=== PATIENT | male | born 1955 | race Caucasian/White ===

== ENCOUNTER 2017-09-19 09:57 | Emergency (ER) | payer BC ==
[~2017-09-19] VITALS: Ht 172.7 cm; Wt 80.0 kg
[~2017-09-19 09:57] MED LIST: ALPR.25 PO; ASPI81TA82 PO; CO Q100C9 PO; LISI-357 PO; METO25TA6 PO; NEUR600T PO; OMEG100037; ROSU40 PO; ZYRT10TA12 PO
[2017-09-19 10:02] VITALS: BP 141/63; PULSE 67; RESP 15; TEMP 98.6; O2SAT 98
[2017-09-19] MEDS ORDERED: METO25TA3 PO (10:24)
[2017-09-19] MEDS ORDERED: ROSU20 PO (10:24)
[2017-09-19] MEDS ORDERED: GABA600T PO (10:24)
[2017-09-19] MEDS ORDERED: ASPI81CH6 CHEW (10:24)
[2017-09-19] MEDS ORDERED: LISI-519 PO (10:24)
[2017-09-19] MEDS ORDERED: ACETAMINOPHEN/HYDROcodone 325 MG/5 MG TAB PO ONE (10:45)
--- NOTE | 2017-09-19 11:11 | PD ---
HPI Chief Complaint: Back/ Neck Pain or Injury Time Seen by Provider: 10:25 Travel History International Travel<30 days: No Contact w/Intl Traveler<30days: No Traveled to known affect area: No History of Present Illness HPI 62-year-old male with PMH of HTN, cervical spinal stenosis S/P anterior cervical fusion presents the ED for evaluation of 3-week history of pain in the low back that radiates the posterior bilateral lower extremities to the mid calf. The patient can identify no acute injury or recent overuse of the back. States that the pain is rated 10/10 maximally. Shooting in quality, lasting a few seconds before resolving. Alleviated by rest, exacerbated by certain movements. Patient endorses some accompanying tingling in the bilateral lower extremities. He denies numbness, weakness, limitations to range of motion of the lower extremity. He denies saddle anesthesia or urinary/fecal incontinence. States the pain is been more frequent over the last few days. He has never had any problems with his low back in the past. He treated at home with anti- inflammatories about 2 hours before arrival with no improvement of symptoms. PFSH Past Medical History Cancer: No Cardiovascular Problems: No Diabetes: No Endocrine: No Genitourinary: No Hepatitis: No Hypertension: Yes Immune Disorder: No Musculoskeletal: Yes (NECK AND BACK) Neurologic: Yes (BILAT ARMS AND HANDS TINGLING) Psychiatric: No Respiratory: No Thyroid Disease: No Past Surgical History Body Medical Devices: COCHLEAR IMPLANT RIGHT EAR Ear Surgery: Yes (COCHLEAR IMPLANT RIGHT EAR) Joint Replacement: No Neurologic Surgery: Yes (CERVICAL FUSION) Pacemaker: No Other Surgery: Yes Social History Alcohol Use: Yes (social) Tobacco Use: No Substance Use: No Allergies-Medications (Allergen,Severity, Reaction): Coded Allergies: No Known Allergies (Unverified Adverse Reaction, Unknown, 09/19/17) Reported Meds & Prescriptions Reported Meds & Active Scripts Active Tylenol (Acetaminophen) 325 Mg Tab 650 Mg PO Q6H PRN Robaxin (Methocarbamol) 500 Mg Tab 500 Mg PO TID [place] (Hydrocodone-Acetaminophen) 5 Mg-325 Mg Tab 1 Tab PO Q6H PRN Reported Aspirin Low Dose (Aspirin) 81 Mg Chew 81 Mg CHEW DAILY Crestor (Rosuvastatin Calcium) 20 Mg Tab 20 Mg PO DAILY Lisinopril 5 Mg Tab 5 Mg PO DAILY Metoprolol Tartrate 25 Mg Tab 12.5 Mg PO DAILY Gabapentin 600 Mg Tab 600 Mg PO HS Review of Systems Except as stated in HPI: all other systems reviewed are Neg Physical Exam Narrative GENERAL: Well-nourished, well-developed pleasant white male no acute distress. SKIN: Focused skin assessment warm/dry. HEAD: Normocephalic. EYES: No scleral icterus. No injection or drainage. NECK: Supple, trachea midline. No JVD or lymphadenopathy. CARDIOVASCULAR: Regular rate and rhythm without murmurs, gallops, or rubs. RESPIRATORY: Breath sounds clear and equal bilaterally. No accessory muscle use. GASTROINTESTINAL: Abdomen soft, non-tender, nondistended. Active bowel sounds. MUSCULOSKELETAL: No cyanosis, or edema. 2+ DP pulse bilaterally. 5/5 strength of dorsiflexion, plantarflexion, knee and hip flexion bilaterally. No pain elicited with range of motion testing. Neurovascularly intact distally bilaterally. BACK: Nontender without obvious deformity. No CVA tenderness. Mild to moderate midline tenderness in the lumbar area. No tenderness to palpation of the paraspinal musculature in the lumbar area. No tenderness over the sciatic notch bilaterally. Data Data Last Documented VS Vital Signs Date Time Temp Pulse Resp B/P (MAP) Pulse Ox O2 Delivery O2 Flow Rate FiO2 09/19/17 13:28 09/19/17 10:02 98.6 [address] Lumb Spine W/O Contrast (09/19/17 10:32) Acetamin-Hydrocod 325-5 Mg ([place] 5-325 (09/19/17 10:45) Dexamethasone Inj (Decadron Inj) (09/19/17 13:15) Ed Discharge Order (09/19/17 13:12) [facility] Medical Decision Making Medical Screen Exam Complete: Yes Emergency Medical Condition: Yes Differential Diagnosis Lumbar stenosis versus radiculopathy versus sciatica versus low back strain versus other Narrative Course 62-year-old male with PMH of HTN, cervical spinal stenosis S/P anterior cervical fusion presents the ED for evaluation of 3-week history of shooting pain in the low back that radiates down the posterior BLE to the mid calf. More frequent over the last few days. Denies red flag symptoms. Vitals reviewed. On exam the patient has some midline tenderness in the lumbar area. Otherwise reassuring. No focal neuro deficits. Equal strength in the bilateral lower extremities. Palpable DP pulses bilaterally. Patient was administered [address] lumbar spine reveals minimal retrolisthesis L2 on L3 on L4 on L5 on S1. L3-4 and L4-5 and L5-S1 disc protrusion and mild bilateral foraminal stenosis between L3 and S1. I discussed these findings with the patient. He is administered IM Decadron. He is prescribed a short course of pain medications and muscle relaxants. He is instructed to follow-up this week with Dr. Junior for further evaluations. We discussed red flag symptoms and reasons to return to the ED. He was provided a copy of the CT results. He indicated understanding of the instructions and is agreeable to care plan. The patient is stable and discharged home. Diagnosis Primary Impression: Bulging lumbar disc Additional Impression: Retrolisthesis of vertebrae Referrals: Giles Junior MD Additional Instructions: Rest, hydrate Resume normal, gentle activities as tolerated. Take medications as prescribed. Follow-up with Dr. Junior as discussed. Return to the ED for worsening symptoms or any urgent or emergent medical condition. Med/Other Pt SpecificInfo: Prescription(s) given Scripts Acetaminophen (Tylenol) 325 Mg Tab 650 MG PO Q6H Y for PAIN SCALE 1 TO 5, #15 TAB 0 Refills Prov: Naina Bender DO 09/19/17 Methocarbamol (Robaxin) 500 Mg Tab 500 MG PO TID for Muscle Spasm, #10 TAB 0 Refills Prov: Naina Bender DO 09/19/17 Hydrocodone-Acetaminophen ([place]) 5 Mg-325 Mg Tab 1 TAB PO Q6H Y for PAIN, #10 TAB 0 Refills Prov: Naina Bender DO 09/19/17 Disposition: 01 DISCHARGE HOME Condition: Stable Alba Shahid Sep 19, 2017 11:11
--- NOTE | 2017-09-19 12:56 | RADRPT ---
EXAM DATE: 09/19/2017 12:49 PM EDT AGE/SEX: 62 years / Male INDICATIONS: Back pain radiating down legs. CLINICAL DATA: This is the patient's initial encounter. Patient reports that signs and symptoms have been present for 4 - 6 days and indicates a pain score of 5/10. MEDICAL/SURGICAL HISTORY: None. . Cervical fusion. RADIATION DOSE: 20.49 CTDI (mGy) COMPARISON: No prior exams available for comparison. TECHNIQUE: Contiguous axial images were acquired with a multirow detector CT scanner without contras t. Multiplanar reconstructions in the sagittal and coronal plane were also performed. Using automate d exposure control and adjustment of the mA and/or kV according to patient size, radiation dose was k ept as low as reasonably achievable to obtain optimal diagnostic quality images. DICOM format image data is available electronically for review and comparison. FINDINGS: At [id number] there is no significant abnormality. At L2-3 there is a broad-based posterior disc bulge and facet arthropathy with mild canal stenosis at the lateral recesses and mild bilateral foraminal stenosis At L3-4 there is a minimal grade 1 retrolisthesis and a broad-based disc protrusion and facet arthrop athy. There is a moderate central canal and lateral recess stenosis and mild bilateral foraminal sten osis. At L4-5 there is a minimal retrolisthesis and broad-based disc protrusion with a mild to moderate ander tral canal and lateral recess stenosis and mild bilateral foraminal stenosis. At L5-S1 there is a minimal retrolisthesis and a broad-based posterior disc protrusion, worse on the left side. There is moderate stenosis especially at the left lateral recess and there is bilateral fo raminal stenosis. CONCLUSION: 1. Minimal retrolistheses on L2 on L3 on L4 on L5 on S1. No acute fracture. 2. At L3-4 broad-based disc protrusion results in at least a moderate central canal and lateral rece ss stenosis 3. At L4-5 broad-based disc protrusion results in mild to moderate central canal lateral recess sten osis 4. At L5-S1 broad-based posterior disc protrusion results in at least a moderate stenosis on the lef t side with left lateral recess stenosis. 5. Mild bilateral foraminal stenosis between L3 and S1. Electronically signed by: Navjot Martínez MD 09/19/2017 12:55 PM EDT
[2017-09-19] MEDS ORDERED: NORC5TAB PO (13:11)
[2017-09-19] MEDS ORDERED: TYLE325T PO (13:11)
[2017-09-19] MEDS ORDERED: ROBA500T PO (13:11)
[2017-09-19] MEDS ORDERED: DEXAMETHASONE SOD PHOS 20 MG/5 ML VIAL IM ONE (13:15)
== END 2017-09-19 13:28 | disposition home or self-care (01) ==
LOC: NEPD 09:57
DX: M51.26 Other intervertebral disc displacement, lumbar region (principal); I10 Essential (primary) hypertension
CPT/HCPCS: 72131; 96372; 99283; J1100